=== PATIENT | male | born 1980 | race Caucasian/White ===

== ENCOUNTER → 2017-12-05 | Outpatient (CLI) | payer BC ==
--- NOTE | 2017-12-05 14:11 | DIAGNOSTIC IMAGING REPORT ---
SUBMANDIBULAR NECK ULTRASONOGRAPHY CLINICAL HISTORY: Palpable nodule COMPARISON STUDY: None FINDINGS: Ultrasonographic evaluation of both submandibular regions was performed. Bilateral lymph nodes were visualized measuring 15 x 11 x 6 mm and 12 x 8 x 7 mm on the right. On the left there is a 17 x 9 x 9 mm lymph node. IMPRESSION: Bilateral submandibular lymph nodes are visualized, likely reactive. Clinical follow-up is recommended Electronically signed by: Isidro Middleton M.D. 12/05/2017 2:09 PM Dictated Date/Time: 12/05/2017 2:07 PM
== END | disposition home or self-care (01) ==
LOC: C.ULTR 13:25
PROVIDERS: ATTEND Family Medicine
DX: R59.0 Localized enlarged lymph nodes (principal)